=== PATIENT | male | born 1930 | race Caucasian/White ===

== ENCOUNTER 2019-04-25 15:15 | Emergency (ER) | payer MEDICARE, BC ==
[~2019-04-25] VITALS: Ht 162.6 cm; Wt 78.5 kg
[~2019-04-25 15:15] MED LIST: [UNRECOGNIZED DRUG - REMARK]; [UNRECOGNIZED DRUG - REMARK]; [UNRECOGNIZED DRUG - REMARK]
--- NOTE | 2019-04-25 15:15 | NUR ---
BIB [facility] 79 FROM HOME,ABDOMINAL PAIN X 2 DAYS. PATIENT IN BED, NO DISTRESS NOTED. PLACED ON THE MONITOR.
[2019-04-25] MEDS ORDERED: ROSU40TA PO (15:29)
[2019-04-25] MEDS ORDERED: OMEP20TA5 PO (15:29)
[2019-04-25] MEDS ORDERED: ENAL5TAB PO (15:29)
[2019-04-25] MEDS ORDERED: ACET325C5 PO (15:29)
[2019-04-25] MEDS ORDERED: ATEN50TA PO (15:29)
[2019-04-25] MEDS ORDERED: IV NS 0.9% 1,000 ML BAG IV ONE (15:30)
[2019-04-25 15:39] LABS: BASOPHILS # (AUTO) 0.1 /CMM (0.0-0.2); BASOPHILS % (AUTO) 0.9 % (0.0-2.0); EOSINOPHILS % (AUTO) 1.2 % (0.0-6.0); HEMATOCRIT 33 % (39-51); HEMOGLOBIN 11.5 g/dL (13.5-17.5); LYMPHOCYTES # (AUTO) 1.7 /CMM (0.8-4.8); MEAN CORPUSCULAR HGB CONC 35 g/dl (31.0-36.0); MEAN CORPUSCULAR VOLUME 90 fL (80-96); MONOCYTES # (AUTO) 0.6 /CMM (0.1-1.30); MONOCYTES % (AUTO) 6.3 % (2.0-12.0); NEUTROPHILS % (AUTO) 73.6 % (43.0-81.0); PLATELET COUNT (AUTO) 296 /CMM (150-450); RED BLOOD CELL COUNT(AUTO) 3.66 MIL/uL (4.5-6.0); WHITE BLOOD COUNT (AUTO) 9.6 K/uL (4.3-11.0)
--- NOTE | 2019-04-25 15:45 | NUR ---
PATIENT REFUSING IV LINE AND BLOOD DRAWS. AGREED WITH CT. PATIENT HAD A BM AND FELT BETTER AND INSISTED ON GOING HOME. EXPLAINED RISKS AND BENEFITS STILL REFUSED. DR. PAPPAS AWARE.
[2019-04-25 15:57] LABS: CALCIUM, SERUM 9.1 mg/dL (8.5-10.1); CARBON DIOXIDE 22 mmol/L (21-32); CHLORIDE 105 mmol/L (98-107); CREATININE 2.2 mg/dL (0.6-1.3); GLUCOSE 204 mg/dL (74-106); POTASSIUM 3.9 mmol/L (3.5-5.1); SODIUM SERUM 140 mmol/L (136-145); UREA NITROGEN, BLOOD 44 mg/dL (7-18)
[2019-04-25 16:13] LABS: ALANINE AMINOTRANSFERASE 32 U/L (12-78); ALBUMIN 3.3 g/dL (3.4-5.0); ALKALINE PHOSPHATASE 127 U/L (46-116); ASPARTATE AMINOTRANSFERASE 21 U/L (15-37); BILIRUBIN,DIRECT 0.1 mg/dL (0.0-0.2); BILIRUBIN,TOTAL 0.4 mg/dL (0.2-1.0); LIPASE 143 U/L (73-393); TOTAL PROTEIN, SERUM 6.5 g/dL (6.4-8.2)
[2019-04-25] MEDS ORDERED: AMLO5TAB4 PO (16:15)
[2019-04-25] MEDS ORDERED: ALLO300T2 PO (16:15)
[2019-04-25] MEDS ORDERED: INSU100V37 SQ (16:15)
[2019-04-25] MEDS ORDERED: GLUC100017 PO (16:15)
[2019-04-25] MEDS ORDERED: TAMS-12 PO (16:15)
[2019-04-25] MEDS ORDERED: OMEG1000 PO (16:15)
[2019-04-25] MEDS ORDERED: MULT-447 PO (16:15)
[2019-04-25] MEDS ORDERED: ASPI-605 PO (16:15)
[2019-04-25] MEDS ORDERED: GUAN1TAB2 PO (16:15)
[2019-04-25] MEDS ORDERED: CHOL100040 PO (16:15)
[2019-04-25] MEDS ORDERED: LINA5TAB PO (16:15)
[2019-04-25] MEDS ORDERED: EZET10TA14 PO (16:15)
[2019-04-25] MEDS ORDERED: ATOR40TA PO (16:15)
[2019-04-25] MEDS ORDERED: LEVO88TA2 PO (16:15)
[2019-04-25] MEDS ORDERED: LEVOFLOXACIN 750 MG /D5W 150ML PIGGYBACK IV ONE (17:00)
[2019-04-25] MEDS ORDERED: FLAGYL/NS RTU 500 MG/100 ML PIGGYBACK IV ONE (17:00)
--- NOTE | 2019-04-25 17:20 | NUR ---
Patient refused all IV medications, expleined risks and benefits.
--- NOTE | 2019-04-25 17:22 | NUR ---
Rx given, patient discharged to home in stable condition. Written and verbal after care instructions given. Patient verbalizes understanding of instruction. Caregiver at bedside.
[2019-04-25 17:23] VITALS: BP 161/80
== END 2019-04-25 17:26 | disposition home or self-care (01) ==
LOC: ER 15:18
DX: K57.32 Diverticulitis of large intestine without perforation or abscess without bleeding (principal); I10 Essential (primary) hypertension; E11.9 Type 2 diabetes mellitus without complications; Z85.828 Personal history of other malignant neoplasm of skin; Z88.0 Allergy status to penicillin; Z79.4 Long term (current) use of insulin; Z79.82 Long term (current) use of aspirin
CPT/HCPCS: 36415; 80048-TC; 80076-TC; 83605-TC; 83690-TC; 84484-TC; 85025-TC; 85730-TC; 87081-TC